=== PATIENT | female | born 1990 | race African-American/Black ===

== ENCOUNTER 2021-01-14 09:11 | Outpatient (CLI) | payer OTHER ==
--- NOTE | 2021-01-15 14:16 | Nuclear Medicine Report ---
PROCEDURE: Thyroid Imaging and Uptake INDICATIONS: THYROTOXICOSIS RADIOPHARMACEUTICAL: 0.36 ?Ci I-123 sodium iodide by mouth. TECHNIQUE: I-123 sodium iodide was administered orally. Anterior neck images were obtained, and iodine uptake b y the thyroid gland calculated using tool die maker's software. COMPARISON: None available. FINDINGS: Morphology: The thyroid gland has normal morphology and uniform activity. No ?cold? or ?hot? thyroi d nodules are identified. Uptake: 6 hour thyroid uptake is 94.8%; normal ranges are from 6-18%. 24 hour thyroid uptake is 94. 2%; normal ranges are from 10-30%. IMPRESSION: Significantly increased radiotracer uptake at both 6 and 24 hours. Reviewed by: Vishal Fritz MD on 01/15/2021 2:15 PM PDT Approved by: Vishal Fritz MD on 01/15/2021 2:15 PM PDT Station ID: [id number]
== END 2021-01-14 09:12 | disposition home or self-care (01) ==
LOC: DI 09:11
PROVIDERS: ATTEND Internal Medicine
DX: E05.90 Thyrotoxicosis, unspecified without thyrotoxic crisis or storm (principal)
CPT/HCPCS: 78014